=== PATIENT | female | born 1955 | race Caucasian/White ===

== ENCOUNTER → 2020-05-12 | Outpatient (CLI) | payer OTHER ==
[~2020-05-12] MED LIST: ACIPHEX20 MG PO; BENICAR20 MG PO; LIPITOR20 MG PO; MECLIZINE HCL12.5 MG PO; VESICARE5 MG PO; ZYRTEC10 M3 PO; flonase INH
== END ==
LOC: US 08:44
PROVIDERS: ATTEND Family Medicine
DX: R13.10 Dysphagia, unspecified (principal)
CPT/HCPCS: 76536

== ENCOUNTER 2021-12-19 22:30 | Emergency (ER) | payer OTHER ==
[~2021-12-19] VITALS: Ht 157.5 cm; Wt 113.4 kg
[2021-12-19] MEDS ORDERED: KETOROLAC TROMETHAMINE 60 MG/2 ML VIAL IM ONE (23:15)
[2021-12-20 00:22] VITALS: BP 112/75
[2021-12-20] MEDS ORDERED: LIDOCAINE HCL 1% LOCAL INJ 20 ML VIAL INJ ONE (00:30)
== END 2021-12-20 00:20 | disposition home or self-care (01) ==
LOC: ER 22:33
DX: S06.0X0A Concussion without loss of consciousness, initial encounter (principal); S52.592A Other fractures of lower end of left radius, initial encounter for closed fracture; W01.198A Fall on same level from slipping, tripping and stumbling with subsequent striking against other object, initial encounter; Y93.01 Activity, walking, marching and hiking; Y92.89 Other specified places as the place of occurrence of the external cause
CPT/HCPCS: 25605; 70450; 73090; 99283; J1885